=== PATIENT | female | born 1980 | race Hispanic/Latino ===

== ENCOUNTER 2022-05-04 21:37 | Emergency (ER) | payer MEDICAID, OTHER, SELFPAY ==
[2022-05-04] MEDS ORDERED: Ibuprofen 800 MG TAB ONE (21:54)
== END 2022-05-04 22:37 | disposition home or self-care (01) ==
LOC: NAV ERS 21:37
DX: S60.212A Contusion of left wrist, initial encounter (principal); F17.210 Nicotine dependence, cigarettes, uncomplicated; X58.XXXA Exposure to other specified factors, initial encounter

== ENCOUNTER 2023-11-06 15:51 | Emergency (ER) | payer OTHER | END 2023-11-06 16:21 | disposition home or self-care (01) | LOC: NAV ERS 15:51 | DX: J18.9 Pneumonia, unspecified organism (principal); J44.9 Chronic obstructive pulmonary disease, unspecified; F17.210 Nicotine dependence, cigarettes, uncomplicated | CPT/HCPCS: 71045 ==